=== PATIENT | female | born 1960 | race Two or more races ===

== ENCOUNTER → 2024-01-13 | Outpatient (CLI) | payer MEDICAID, SELFPAY ==
--- NOTE | 2024-01-13 15:15 | XR_ITS ---
Exam: MRI knee without contrast, right complete Date and time of exam: January 13, 2024 1604 hours INDICATIONS: Knee pain months Technique: Multiple axial, coronal, and sagittal sections on the knee have been obtained. T2-Weighted sagittal, fat-suppressed images, TR 3,500, TE 62, T2 weighted coronal fat-saturated images, TR 3,500, TE 62 Proton density sagittal sections, TR 1800, TE 31. T-1 weighted coronal images, TR 524, TE 13.0 Findings: Medial meniscus anterior horn intact. Medial meniscus, body is linear tear communicating inferior articular surface. Posterior horn medial meniscus horizontal linear tear communicating inferior articular surface. Lateral meniscus anterior horn is intact Lateral meniscus, body is intact Posterior horn lateral meniscus is intact Anterior cruciate ligament moderately attenuated Posterior cruciate ligament appears intact. Knee effusion is small. Quadriceps and patellar tendons appear intact. There is no evidence of tendinosis. Inflammatory change or fracture of Hoffa's fat pad is not seen. Medial patellar facet demonstrates mild thinning. Lateral patellar facet cartilage demonstrates mild thinning. Trochlear cartilage demonstrates mild thinning. Marrow signal adequate. Medial collateral ligament appears intact. No meniscocapsular separation is seen. Illiotibial band and fibular collateral ligament are intact. Biceps femoris tendons appear intact. Medial femoral condylar articular cartilage demonstrates moderate thinning. Lateral femoral condylar articular cartilage demonstratesmoderate thinning. Tibial plateau cartilage demonstrates moderate thinning. Impression: Tears of the body and posterior horn medial meniscus Mild attenuation anterior cruciate ligament
== END | disposition home or self-care (01) ==
LOC: SMRI 15:01
PROVIDERS: PCP Family Medicine; Referring Provider Nurse Practitioner Family; Visit Provider Nurse Practitioner Family
DX: S83.241A Other tear of medial meniscus, current injury, right knee, initial encounter (principal); X58.XXXA Exposure to other specified factors, initial encounter; M25.861 Other specified joint disorders, right knee
CPT/HCPCS: 73721

== ENCOUNTER 2024-08-31 09:02 | Outpatient (AMB) | payer MEDICAID, SELFPAY ==
--- NOTE | 2024-08-31 09:23 | PD.ORTHCLVIS ---
Vital signs 08/31/24 09:32 Height 1.7 m Height Method Measured Weight 101.179 kg Weight Measurement Method Standing Scale BMI 34.9 BP 144/87 H Blood Pressure Source Automatic Cuff Blood Pressure Location Right Upper Arm Position Sitting Respiration 16 Pulse 74 Pulse Source Monitor Temp 96.6 F L Temp Source Temporal Artery Scan Pulse Oximetry (%) 97 Oxygen Delivery Method Room Air Med/Allergies Allergies & Medications Allergies hydrocodone Allergy (Mild, Verified 08/31/24 09:33) HALLUCINATIONS codeine Allergy (Unknown, Verified 08/31/24 09:33) HALLUCINATIONS Medication Reconciliation meclizine 25 mg tablet 25 mg PO QDAY PRN dizziness #14 tabs 01/28/22 [Rx Confirmed 08/31/24] meloxicam 7.5 mg tablet 7.5 mg PO QDAY #10 tabs 01/28/22 [Rx Confirmed 08/31/24] meloxicam 7.5 mg tablet 7.5 mg PO QDAY #60 tabs 08/31/24 [Rx] Exam Exam Breathing is nonlabored. Patient has a normal mood and affect. Bilateral extremities were evaluated and demonstrates sensation intact to light touch. Palpable pedal pulses are present. No significant edema is present. Bilateral hips were examined. The patient has no pain with log roll of the hips. Internal rotation to 30 degrees and external rotation to 30 degrees is painless. Negative FADIR. Left knee was examined today. The left knee is in reasonable alignment. Range of motion from 0-120 degrees. Knee is stable to varus and valgus as well as AP translation with <5mm. Patient has a negative McMurrays. There is no pain with patellofemoral compression and no crepitus noted. The knee is nontender to palpation. The right knee was also examined. The right knee is in varus alignment. Range of motion from 0-115 degrees. Knee is stable to varus and valgus as well as AP translation with <5mm. Patient has a negative McMurrays. There is no pain with patellofemoral compression and no crepitus noted. The knee is tender to palpation medially. Assessment and Plan Problem List (1) Arthritis of right knee: Status: Acute Plan: Patient is a 64-year-old female with a degenerative meniscal tear of the right knee. MRI demonstrates posterior horn of the medial meniscus tear. She does have lupus and fibromyalgia as well as arthritis of her right knee. We discussed that since she is doing well I recommend conservative treatment at this time. We will start her with an anti-inflammatory. Should the pain worsen we can try cortisone injection. She is actually doing pretty well at this time. 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) Reason for Visit:: RIGHT KNEE MENISCUS TEAR Seen by Clinical Staff ONLY (RN/MA): No Academic Coach Required: No PCP or OBGYN visit in last 3 months: Yes Hx Now: No Do You Feel Safe at Home: Yes Authorities Contacted: N/A Questionairres Past Medical History Past Medical History Have you ever been diagnosed with any of the following: Subjective Visit Visit for: new patient and knee Immunization / Flu Flu Vaccine in the Last 12 Months: Yes Flu Vaccine Exclusion Criteria: Already Received History of Present Illness Chief complaint: RIGHT KNEE MENISCUS TEAR Patient is a pleasant 64-year-old female with right knee pain. She has a history of lupus and fibromyalgia and was found to have a degenerative meniscal tear. The pain is actually improved since she originally injured in December. We discussed different treatment options. She has not had anything but ibuprofen. She has not had any injections Personal History Occupation: SELF EMPLOYED [employer]ing provided: No Pain Pain level (0-10): 0 Pain location: anterior Pain quality: sharp Pain timing: increases with activity Associated signs & symptoms: none Ambulatory data Ambulatory device: cane and walker Walking distance (blocks): 1 Treatments Improvement with previous injections: No Improvement with PT: No Improvement with NSAIDS: no Review of Systems Review of Systems: All systems negative unless otherwise noted in HPI.
[2024-08-31 09:32] VITALS: BP 144/87; PULSE 74; RESP 16; TEMP 35.9; O2SAT 97; BMI 34.9
== END 2024-08-31 09:55 | disposition home or self-care (01) ==
PROVIDERS: PCP Family Medicine; Referring Provider Family Medicine; Supervising Provider Orthopaedic Surgery Adult Reconstructive Orthopaedic Surgery; Visit Provider Orthopaedic Surgery Adult Reconstructive Orthopaedic Surgery
DX: M17.11 Unilateral primary osteoarthritis, right knee (principal); S83.241A Other tear of medial meniscus, current injury, right knee, initial encounter; X58.XXXA Exposure to other specified factors, initial encounter; M25.561 Pain in right knee
CPT/HCPCS: 99203; G0463